=== PATIENT | male | born 1950 | race Caucasian/White ===

== ENCOUNTER 2018-06-03 20:01 | Inpatient (IN) | payer MEDICARE ==
[2018-06-03] MEDS ORDERED: IPRATROPIUM/ALBUTEROL 0.5-2.5 MG/3 ML AMPUL NEB ONE (20:27)
--- NOTE | 2018-06-03 20:29 | ER Document Report ---
ED Medical Screen (RME) - General Chief Complaint: Shortness Of Breath Stated Complaint: SHORTNESS OF BREATH Time Seen by Provider: 06/03/18 20:27 Notes: 67-year-old male with chief complaint of cough and worsening shortness of breath over the past several days. Reports chest pain only with cough. Visiting the area, comes from assisted living, comes by EMS. Not on home oxygen. Past Medical History - Social History Frequency of alcohol use: None Drug Abuse: None Renal/ Medical History: Denies: Hx Peritoneal Dialysis Physical Exam - Vital signs Vitals: Temp Pulse Resp BP Pulse Ox 98.0 F 54 L 18 126/78 H 99 06/03/18 20:16 06/03/18 20:16 06/03/18 20:16 06/03/18 20:16 06/03/18 20:16 - Respiratory Respiratory status: No respiratory distress Breath sounds: Other - A few coarse breath sounds and scattered expiratory wheezes, mild occasional nonproductive cough Course - Re-evaluation Re-evalutation: I have greeted and performed a rapid initial assessment of this patient. A comprehensive ED assessment and evaluation of the patient, analysis of test results and completion of the medical decision making process will be conducted by additional ED providers. - Vital Signs Vital signs: Temp Pulse Resp BP Pulse Ox 98.0 F 54 L 18 126/78 H 99 06/03/18 20:16 06/03/18 20:16 06/03/18 20:16 06/03/18 20:16 06/03/18 20:16
[2018-06-03 21:25] LABS: ABSOLUTE BASOPHILS # (AUTO) 0.1 10^3/uL (0.0-0.2); ABSOLUTE EOSINOPHILS # (AUTO) 0.3 10^3/uL (0.0-0.6); ABSOLUTE LYMPHOCYTES (AUTO) 1.2 10^3/uL (0.5-4.7); ABSOLUTE MONOCYTES (AUTO) 0.6 10^3/uL (0.1-1.4); ABSOLUTE NEUT (AUTO) 3.9 10^3/uL (1.7-8.2); BASOPHILS % (AUTO) 1.1 % (0-2); EOSINOPHILS % (AUTO) 5.5 % (0-6); HEMATOCRIT 38.4 % (37.9-51.0); HEMOGLOBIN 13.2 g/dL (13.5-17.0); LYMPHOCYTES % (AUTO) 19.3 % (13-45); MEAN CORPUSCULAR HEMOGLOBIN 30.2 pg (27.0-33.4); MEAN CORPUSCULAR HGB CONC 34.3 g/dL (32.0-36.0); MEAN CORPUSCULAR VOLUME 88 fl (80-97); MONOCYTES % (AUTO) 9.9 % (3-13); PLATELET COUNT 270 10^3/uL (150-450); RED BLOOD COUNT 4.36 10^6/uL (4.35-5.55); RED CELL DISTRIBUTION WIDTH 13.4 % (11.5-14.0); SEGMENTED NEUTROPHILS % (AUTO) 64.2 % (42-78); TOTAL CELLS COUNTED % (AUTO) 100 %
[2018-06-03 22:02] LABS: ALANINE AMINOTRANSFERASE 64 U/L (21-72); ALBUMIN 3.4 g/dL (3.5-5.0); ALKALINE PHOSPHATASE 112 U/L (38-126); ANION GAP 8 (5-19); ASPARTATE AMINO TRANSFERASE 46 U/L (17-59); BILIRUBIN,DIRECT 0.5 mg/dL (0.0-0.4); BILIRUBIN,TOTAL 0.9 mg/dL (0.2-1.3); BLOOD UREA NITROGEN 9 mg/dL (7-20); CALCIUM 8.8 mg/dL (8.4-10.2); CARBON DIOXIDE 28 mmol/L (22-30); CHLORIDE 85 mmol/L (98-107); GLUCOSE 250 mg/dL (75-110); POTASSIUM 5.1 mmol/L (3.6-5.0); TOTAL PROTEIN 5.8 g/dL (6.3-8.2)
--- NOTE | 2018-06-03 22:03 | RADIOLOGY REPORT (SQ) ---
EXAM DESCRIPTION: XR CHEST 1 VIEW COMPLETED DATE/TME: 06/03/2018 20:27 CLINICAL HISTORY: 67 years, Male, shortness of breath, cough COMPARISON: None. NUMBER OF VIEWS: TECHNIQUE: LIMITATIONS: None. FINDINGS: EXAM DESCRIPTION: CLINICAL HISTORY: shortness of breath, cough COMPARISON: None. FINDINGS: Single view of the chest is submitted. Cardiac silhouette is enlarged. There is bilateral pulmonary vascular engorgement and there is consolidation at each lung base with a moderate left pleural effusion. IMPRESSION: Bilateral consolidations. Cardiomegaly. Left pleural effusion.
[2018-06-03 22:19] LABS: SODIUM 120.6 mmol/L (137-145)
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
[2018-06-04] MEDS ORDERED: FUROSEMIDE INJ/PF 40 MG/4 ML SDV IV ONE (01:27)
[2018-06-04] MEDS ORDERED: DEXTROSE 50%-WATER 25 GM/50 ML DISP.SYRIN IV PRN ×2 (01:30)
[2018-06-04] MEDS ORDERED: ACETAMINOPHEN 325 MG TABLET PO PRN (01:30)
[2018-06-04] MEDS ORDERED: DEXTROSE 40% GEL 15 GM TUBE PO PRN ×2 (01:30)
[2018-06-04] MEDS ORDERED: GLUCAGON,HUMAN RECOMB 1 MG INJ IM PRN (01:30)
[2018-06-04] MEDS ORDERED: MAG HYDROX/AL HYDROX/SIMETH SUSP 30 ML UDCUP PO PRN (01:30)
--- NOTE | 2018-06-04 01:35 | ER Document Report ---
Doctor's Note Notes: I personally and independently obtained patient history and examined the patient and have reviewed the APC's note, reviewed, discussed and agree with their assessment and plan. HISTORY OF PRESENT ILLNESS: Patient is a 67-year-old male that presents to the emergency department for chief complaint of shortness of breath. ROS: Constitutional: Negative for fever. Cardiovascular: Negative for chest pain. Respiratory: Positive for shortness of breath Gastrointestinal: Negative for vomiting or abdominal pain Musculoskeletal: Negative for arm, leg or back pain Skin: Negative for rash. Neurological: Negative for weakness or numbness. Unless otherwise stated in this report the patient's positive and negative responses for review of systems for constitutional, eyes, ENT, cardiovascular, respiratory, gastrointestinal, neurological, genitourinary, musculoskeletal, and integumentary systems and related systems to the presenting problem are either as stated in the HPI or were not pertinent or were negative for the symptoms and/or complaints related to the presenting medical problem. PHYSICAL EXAMINATION: Vital signs reviewed, nursing noted reviewed. GENERAL: Well-appearing, well-nourished and in no acute distress. HEAD: Atraumatic, normocephalic. EYES: Eyes appear normal, conjunctiva are normal. ENT: nares patent, oropharynx clear without exudates. Moist mucous membranes. NECK: Normal range of motion, supple without lymphadenopathy LUNGS: Crackles noted at the lung bases, otherwise clear to auscultation in the upper lung lehman, no respiratory distress HEART: Regular rate and rhythm without murmurs ABDOMEN: Soft, nontender, normoactive bowel sounds. No rebound, guarding, or rigidity. No masses appreciated. EXTREMITIES: Nontender, good range of motion, no pitting or edema. NEUROLOGICAL: No focal neurological deficits. Moves all extremities spontaneously Motor and sensory grossly intact on exam. PSYCH: Normal mood, normal affect. SKIN: Warm, Dry, normal turgor, no rashes or lesions noted on exposed MEDICAL DECISION MAKING: After review and examined the patient, and results, patient will need to be admitted to the hospital, for significant hyponatremia, acute kidney injury, likely type II cardiorenal syndrome secondary to volume overload, and this is most likely hypervolemic hyponatremia, given that the patient did have pulmonary edema, leading to the patient's shortness of breath. Patient was admitted to the hospitalist who accepted him onto their service. Please review detail APC documentation. *Note is created using voice recognition software and may contain spelling, syntax or grammatical errors. CRITICAL CARE TIME: 35 minutes Critical care time 35 minutes exclusive from separate billable procedures for a patient requiring complex medical decision making, and high potential for clinical deterioration. In a patient with significant electrolyte abnormalities , volume overload, and pulmonary edema. time spent obtaining history from patient or surrogate, discussions with consultants, development of treatment plan with patient or surrogate, evaluation of patient's response to treatment, examination of patient, ordering and performing treatments and interventions, ordering and review of laboratory studies, re-evaluation of patient's condition , ordering and review of radiographic studies and review of old charts Microbiology 06/04/18 00:26 Blood Culture - Preliminary Blood NO GROWTH IN 24 HOURS 06/03/18 21:10 Blood Culture - Preliminary Blood NO GROWTH IN 24 HOURS Laboratory 06/03/18 06/03/18 06/03/18 21:10 21:10 21:10 WBC 6.0 RBC 4.36 Hgb 13.2 L Hct 38.4 MCV 88 MCH 30.2 MCHC 34.3 RDW 13.4 Plt Count 270 Seg Neutrophils % 64.2 Lymphocytes % 19.3 Monocytes % 9.9 Eosinophils % 5.5 Basophils % 1.1 Absolute Neutrophils 3.9 Absolute Lymphocytes 1.2 Absolute Monocytes 0.6 Absolute Eosinophils 0.3 Absolute Basophils 0.1 Sodium 120.6 L* Potassium 5.1 H Chloride 85 L Carbon Dioxide 28 Anion Gap 8 BUN 9 Creatinine 0.72 Est GFR ( Amer) > 60 Est GFR (Non-Af Amer) > 60 Glucose 250 H Serum Osmolality Calcium 8.8 Total Bilirubin 0.9 Direct Bilirubin 0.5 H Neonat Total Bilirubin Not Reportable Neonat Direct Bilirubin Not Reportable Neonat Indirect Bili Not Reportable AST 46 ALT 64 Alkaline Phosphatase 112 Creatine Kinase CK-MB (CK-2) Troponin I 0.020 NT-Pro-B Natriuret Pep Total Protein 5.8 L Albumin 3.4 L TSH Free T4 Free T3 pg/mL Urine Osmolality Urine Sodium 06/03/18 06/03/18 06/03/18 21:10 21:10 21:10 WBC RBC Hgb Hct MCV MCH MCHC RDW Plt Count Seg Neutrophils % Lymphocytes % Monocytes % Eosinophils % Basophils % Absolute Neutrophils Absolute Lymphocytes Absolute Monocytes Absolute Eosinophils Absolute Basophils Sodium Potassium Chloride Carbon Dioxide Anion Gap BUN Creatinine Est GFR ( Amer) Est GFR (Non-Af Amer) Glucose Serum Osmolality 261 L Calcium Total Bilirubin Direct Bilirubin Neonat Total Bilirubin Neonat Direct Bilirubin Neonat Indirect Bili AST ALT Alkaline Phosphatase Creatine Kinase CK-MB (CK-2) Troponin I NT-Pro-B Natriuret Pep 5840 H Total Protein Albumin TSH 10.10 H Free T4 Free T3 pg/mL Urine Osmolality Urine Sodium 06/04/18 06/04/18 06/04/18 02:07 03:47 03:47 WBC 6.4 RBC 4.82 Hgb 14.6 Hct 42.8 MCV 89 MCH 30.2 MCHC 34.1 RDW 13.3 Plt Count 253 Seg Neutrophils % 64.5 Lymphocytes % 21.5 Monocytes % 6.9 Eosinophils % 5.7 Basophils % 1.4 Absolute Neutrophils 4.1 Absolute Lymphocytes 1.4 Absolute Monocytes 0.4 Absolute Eosinophils 0.4 Absolute Basophils 0.1 Sodium Potassium Chloride Carbon Dioxide Anion Gap BUN Creatinine Est GFR ( Amer) Est GFR (Non-Af Amer) Glucose Serum Osmolality Calcium Total Bilirubin Direct Bilirubin Neonat Total Bilirubin Neonat Direct Bilirubin Neonat Indirect Bili AST ALT Alkaline Phosphatase Creatine Kinase CK-MB (CK-2) 4.51 Troponin I 0.020 NT-Pro-B Natriuret Pep Total Protein Albumin TSH Free T4 Free T3 pg/mL Urine Osmolality 157 L Urine Sodium < 5 L 06/04/18 06/04/18 06/04/18 03:47 03:47 08:43 WBC RBC Hgb Hct MCV MCH MCHC RDW Plt Count Seg Neutrophils % Lymphocytes % Monocytes % Eosinophils % Basophils % Absolute Neutrophils Absolute Lymphocytes Absolute Monocytes Absolute Eosinophils Absolute Basophils Sodium 125.8 L Potassium 4.2 Chloride 85 L Carbon Dioxide 31 H Anion Gap 10 BUN 9 Creatinine 0.66 Est GFR ( Amer) > 60 Est GFR (Non-Af Amer) > 60 Glucose 315 H Serum Osmolality Calcium 8.7 Total Bilirubin Direct Bilirubin Neonat Total Bilirubin Neonat Direct Bilirubin Neonat Indirect Bili AST ALT Alkaline Phosphatase Creatine Kinase 230 H 161 CK-MB (CK-2) Troponin I NT-Pro-B Natriuret Pep Total Protein Albumin TSH Free T4 1.47 Free T3 pg/mL 1.44 L Urine Osmolality Urine Sodium 06/04/18 06/04/18 06/04/18 08:43 14:36 14:36 WBC RBC Hgb Hct MCV MCH MCHC RDW Plt Count Seg Neutrophils % Lymphocytes % Monocytes % Eosinophils % Basophils % Absolute Neutrophils Absolute Lymphocytes Absolute Monocytes Absolute Eosinophils Absolute Basophils Sodium Potassium Chloride Carbon Dioxide Anion Gap BUN Creatinine Est GFR ( Amer) Est GFR (Non-Af Amer) Glucose Serum Osmolality Calcium Total Bilirubin Direct Bilirubin Neonat Total Bilirubin Neonat Direct Bilirubin Neonat Indirect Bili AST ALT Alkaline Phosphatase Creatine Kinase 150 CK-MB (CK-2) 3.88 3.59 Troponin I 0.020 0.017 NT-Pro-B Natriuret Pep Total Protein Albumin TSH Free T4 Free T3 pg/mL Urine Osmolality Urine Sodium Chest X-Ray 06/03/18 20:27 with a moderate left pleural effusion. IMPRESSION: Bilateral consolidations. Cardiomegaly. Left pleural effusion.
[2018-06-04] MEDS ORDERED: HYDRALAZINE HCL INJ/PF 20 MG/1 ML SDV IV PRN (01:36)
[2018-06-04] MEDS ORDERED: NITROGLYCERIN 5 MG (0.2 MG/HR) PATCH.TD24 TD ONE (01:45)
[2018-06-04 02:53] LABS: OSMOLALITY,URINE 157 mOsm/kg (300-900)
[2018-06-04 03:10] LABS: URINE SODIUM < 5 mmol/L (30-90)
[2018-06-04 04:00] LABS: ABSOLUTE BASOPHILS # (AUTO) 0.1 10^3/uL (0.0-0.2); ABSOLUTE EOSINOPHILS # (AUTO) 0.4 10^3/uL (0.0-0.6); ABSOLUTE LYMPHOCYTES (AUTO) 1.4 10^3/uL (0.5-4.7); ABSOLUTE MONOCYTES (AUTO) 0.4 10^3/uL (0.1-1.4); ABSOLUTE NEUT (AUTO) 4.1 10^3/uL (1.7-8.2); BASOPHILS % (AUTO) 1.4 % (0-2); EOSINOPHILS % (AUTO) 5.7 % (0-6); HEMATOCRIT 42.8 % (37.9-51.0); HEMOGLOBIN 14.6 g/dL (13.5-17.0); LYMPHOCYTES % (AUTO) 21.5 % (13-45); MEAN CORPUSCULAR HEMOGLOBIN 30.2 pg (27.0-33.4); MEAN CORPUSCULAR HGB CONC 34.1 g/dL (32.0-36.0); MEAN CORPUSCULAR VOLUME 89 fl (80-97); MONOCYTES % (AUTO) 6.9 % (3-13); PLATELET COUNT 253 10^3/uL (150-450); RED BLOOD COUNT 4.82 10^6/uL (4.35-5.55); RED CELL DISTRIBUTION WIDTH 13.3 % (11.5-14.0); SEGMENTED NEUTROPHILS % (AUTO) 64.5 % (42-78); TOTAL CELLS COUNTED % (AUTO) 100 %; WHITE BLOOD COUNT 6.4 10^3/uL (4.0-10.5)
[2018-06-04 04:16] LABS: ANION GAP 10 (5-19); BLOOD UREA NITROGEN 9 mg/dL (7-20); CALCIUM 8.7 mg/dL (8.4-10.2); CARBON DIOXIDE 31 mmol/L (22-30); CHLORIDE 85 mmol/L (98-107); CREATINE KINASE 230 U/L (55-170); GLUCOSE 315 mg/dL (75-110); POTASSIUM 4.2 mmol/L (3.6-5.0); SODIUM 125.8 mmol/L (137-145)
[2018-06-04 04:26] LABS: CREATINE KINASE MB 4.51 ng/mL (<4.55); TROPONIN I 0.02 ng/mL
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
[2018-06-04 05:13] LABS: FREE T3 1.44 pg/mL (2.77-5.27); FREE T4 (FREE THYROXINE) 1.47 ng/dL (0.78-2.19)
[2018-06-04] MEDS: HEPARIN SOD (PORCINE) 5,000 UNIT/ML 1 ML SYRINGE SUBCUT SCH ×3 (07:06→22:00)
[2018-06-04 09:45] LABS: CREATINE KINASE MB 3.88 ng/mL (<4.55); TROPONIN I 0.02 ng/mL
[2018-06-04] MEDS ORDERED: FUROSEMIDE INJ/PF 40 MG/4 ML SDV IV SCH (10:00)
[2018-06-04] MEDS: LOSARTAN POTASSIUM 25 MG TABLET PO SCH (13:02)
[2018-06-04] MEDS: DOCUSATE SODIUM 100 MG CAPSULE PO SCH (13:02)
[2018-06-04] MEDS: ASPIRIN 81 MG TABLET, ENT COATED PO SCH (13:03)
[2018-06-04] MEDS: NITROGLYCERIN 5 MG (0.2 MG/HR) PATCH.TD24 TD SCH (13:08)
[2018-06-04 15:18] LABS: CREATINE KINASE MB 3.59 ng/mL (<4.55); TROPONIN I 0.017 ng/mL
--- NOTE | 2018-06-04 15:25 | EKG REPORT ---
SEVERITY:- ABNORMAL ECG - ATRIAL FIBRILLATION, V-RATE 50-57 MULTIPLE VENTRICULAR PREMATURE COMPLEXES ABERRANT COMPLEX, POSSIBLY SUPRAVENTRICULAR ABNRM R PROG, CONSIDER ASMI OR LEAD PLACEMENT NONSPECIFIC T ABNORMALITIES, LATERAL LEADS : Confirmed by: Kandi Harris MD 04-Jun-2018 15:24:53
[2018-06-04] MEDS ORDERED: SENNOSIDES/DOCUSATE 8.6-50 MG 1 EACH TABLET PO PRN (17:56)
[2018-06-04] MEDS ORDERED: (PENDING PHARMACY ID) (Levothyroxine Sodium [Synthroid] 250 MCG) PO SCH (18:00)
--- NOTE | 2018-06-04 18:17 | PDOC PROGRESS REPORT ---
Subjective Progress Note for:: 06/04/18 Subjective:: BROOKE KING is a 67 year old male assisted living resident who presented with 24 hours of exertional dyspnea with orthopnea. In the emergency room he was found to have hyponatremia and pulmonary vascular congestion on imaging. He received IV Lasix was admitted. He has done well since his admission with his initial hyponatremia improving with IV fluid and his mild hyperkalemia has also resolved. His initial symptoms of exertional dyspnea and orthopnea have also subsided and he is feeling very well. Reason For Visit: HYPONATREMIA, HEART FAILURE Physical Exam Vital Signs: Temp Pulse Resp BP Pulse Ox 98.0 F 54 L 19 148/94 H 99 06/03/18 20:16 06/03/18 20:29 06/04/18 17:00 06/04/18 14:00 06/04/18 17:00 General appearance: PRESENT: no acute distress, cooperative Head exam: PRESENT: atraumatic, normocephalic Eye exam: PRESENT: conjunctiva pink. ABSENT: conjunctival injection Ear exam: PRESENT: normal external ear exam. ABSENT: bleeding, drainage Mouth exam: PRESENT: neck supple, tongue midline Neck exam: ABSENT: thyromegaly, tracheal deviation Respiratory exam: PRESENT: clear to auscultation isabel, symmetrical, unlabored Cardiovascular exam: PRESENT: RRR, tachycardia. ABSENT: clicks, diastolic murmur, gallop, rubs, systolic murmur Pulses: PRESENT: normal radial pulses, normal dorsalis pedis pul Vascular exam: PRESENT: normal capillary refill. ABSENT: pallor GI/Abdominal exam: PRESENT: normal bowel sounds, soft Rectal exam: PRESENT: deferred Extremities exam: ABSENT: joint swelling, pedal edema Musculoskeletal exam: PRESENT: normal inspection, tenderness. ABSENT: deformity , dislocation Neurological exam: PRESENT: alert, awake, oriented to person, oriented to place , oriented to time, oriented to situation, CN II-XII grossly intact. ABSENT: motor sensory deficit Psychiatric exam: PRESENT: appropriate affect, normal mood Skin exam: ABSENT: jaundice, rash, urticaria Results Laboratory Results: 06/04/18 03:47 06/04/18 03:47 06/04/18 06/04/18 06/04/18 02:07 03:47 03:47 WBC 6.4 RBC 4.82 Hgb 14.6 Hct 42.8 MCV 89 MCH 30.2 MCHC 34.1 RDW 13.3 Plt Count 253 Seg Neutrophils % 64.5 Lymphocytes % 21.5 Monocytes % 6.9 Eosinophils % 5.7 Basophils % 1.4 Absolute Neutrophils 4.1 Absolute Lymphocytes 1.4 Absolute Monocytes 0.4 Absolute Eosinophils 0.4 Absolute Basophils 0.1 Sodium 125.8 L Potassium 4.2 Chloride 85 L Carbon Dioxide 31 H Anion Gap 10 BUN 9 Creatinine 0.66 Est GFR ( Amer) > 60 Est GFR (Non-Af Amer) > 60 Glucose 315 H Calcium 8.7 Free T4 Free T3 pg/mL Urine Osmolality 157 L 06/04/18 03:47 WBC RBC Hgb Hct MCV MCH MCHC RDW Plt Count Seg Neutrophils % Lymphocytes % Monocytes % Eosinophils % Basophils % Absolute Neutrophils Absolute Lymphocytes Absolute Monocytes Absolute Eosinophils Absolute Basophils Sodium Potassium Chloride Carbon Dioxide Anion Gap BUN Creatinine Est GFR ( Amer) Est GFR (Non-Af Amer) Glucose Calcium Free T4 1.47 Free T3 pg/mL 1.44 L Urine Osmolality 06/04/18 06/04/18 06/04/18 03:47 03:47 08:43 Creatine Kinase 230 H 161 CK-MB (CK-2) 4.51 Troponin I 0.020 06/04/18 06/04/18 06/04/18 08:43 14:36 14:36 Creatine Kinase 150 CK-MB (CK-2) 3.88 3.59 Troponin I 0.020 0.017 Impressions: Chest X-Ray 06/03/18 20:27 with a moderate left pleural effusion. IMPRESSION: Bilateral consolidations. Cardiomegaly. Left pleural effusion. Assessment & Plan - Diagnosis (1) Hyperkalemia Is this a current diagnosis for this admission?: Yes Plan: Resolved at this time having been given IV fluids, will observe closely over remainder of his hospital course. (2) Congestive heart failure Is this a current diagnosis for this admission?: Yes Plan: Clinically significant improvement is noted with medication changes utilizing losartan, Toprol-XL, Demadex and spironolactone. Observe over the remainder of the hospital course for continued improvements and toleration of regimen. (3) Diabetes Qualifiers: Diabetes mellitus type: type 2 Diabetes mellitus terminal operations supervisor insulin use: without usp use Diabetes mellitus complication status: without complication Qualified Code(s): E11.9 - Type 2 diabetes mellitus without complications Is this a current diagnosis for this admission?: Yes Plan: Reinstate patient's current diet and treatment plan and check hemoglobin A1c. (4) Hyponatremia Is this a current diagnosis for this admission?: Yes Plan: Gradually improving with therapy utilizing IV fluids. (5) Hypothyroidism Qualifiers: Hypothyroidism type: unspecified Qualified Code(s): E03.9 - Hypothyroidism , unspecified Is this a current diagnosis for this admission?: Yes Plan: Patient's TSH is elevated although the T4 is normal to T3 is somewhat low. This patient probably considered euthyroid sick and we will increase the patient 's thyroid medication slightly to help to improve his overall well-being including possibly resolving some of his congestive heart failure problems. - Time Time Spent with patient: 25-34 minutes Medications reviewed and adjusted accordingly: Yes
[2018-06-04] MEDS: MAGNESIUM OXIDE 400 MG TABLET PO SCH (20:22)
[2018-06-04] MEDS: LEVOTHYROXINE SODIUM 0.15 MG TABLET PO SCH (20:22)
[2018-06-04] MEDS: METFORMIN HCL 500 MG TABLET PO SCH (20:22)
[2018-06-04] MEDS: FERROUS SULFATE 325 MG TABLET PO SCH (20:23)
[2018-06-04] MEDS: CLOPIDOGREL BISULFATE 75 MG TABLET PO SCH (20:23)
[2018-06-04] MEDS: INSULIN LISPRO 100 UNIT/ML 3 ML VIAL SUBCUT PRN (21:59)
[2018-06-04] MEDS ORDERED: ATORVASTATIN CALCIUM 40 MG TABLET PO SCH (22:00)
[2018-06-04] MEDS: ATORVASTATIN CALCIUM 20 MG TABLET PO SCH (22:00)
[2018-06-04] MEDS ORDERED: INSULIN LISPRO 100 UNIT/ML 3 ML VIAL SUBCUT ONE (22:45)
[2018-06-05 05:56] LABS: ABSOLUTE BASOPHILS # (AUTO) 0.1 10^3/uL (0.0-0.2); ABSOLUTE EOSINOPHILS # (AUTO) 0.3 10^3/uL (0.0-0.6); ABSOLUTE MONOCYTES (AUTO) 0.6 10^3/uL (0.1-1.4); ABSOLUTE NEUT (AUTO) 3.4 10^3/uL (1.7-8.2); BASOPHILS % (AUTO) 1.3 % (0-2); EOSINOPHILS % (AUTO) 6.1 % (0-6); HEMATOCRIT 36.9 % (37.9-51.0); LYMPHOCYTES % (AUTO) 17.8 % (13-45); MEAN CORPUSCULAR HEMOGLOBIN 30.5 pg (27.0-33.4); MEAN CORPUSCULAR HGB CONC 35.2 g/dL (32.0-36.0); MEAN CORPUSCULAR VOLUME 87 fl (80-97); MONOCYTES % (AUTO) 11.9 % (3-13); PLATELET COUNT 237 10^3/uL (150-450); RED BLOOD COUNT 4.26 10^6/uL (4.35-5.55); RED CELL DISTRIBUTION WIDTH 13.5 % (11.5-14.0); SEGMENTED NEUTROPHILS % (AUTO) 62.9 % (42-78); TOTAL CELLS COUNTED % (AUTO) 100 %; WHITE BLOOD COUNT 5.3 10^3/uL (4.0-10.5)
[2018-06-05] MEDS: HEPARIN SOD (PORCINE) 5,000 UNIT/ML 1 ML SYRINGE SUBCUT SCH ×3 (06:01→21:51)
[2018-06-05 06:19] LABS: ANION GAP 8 (5-19); BLOOD UREA NITROGEN 11 mg/dL (7-20); CALCIUM 8.5 mg/dL (8.4-10.2); CARBON DIOXIDE 33 mmol/L (22-30); CHLORIDE 88 mmol/L (98-107); GLUCOSE 172 mg/dL (75-110); POTASSIUM 3.9 mmol/L (3.6-5.0); SODIUM 128.7 mmol/L (137-145)
[2018-06-05] MEDS ORDERED: INSULIN GLARGINE,HUM.REC.ANLOG 1,000 UNIT/10 ML UNIT SUBCUT SCH (07:30)
[2018-06-05] MEDS: INSULIN LISPRO 100 UNIT/ML 3 ML VIAL SUBCUT PRN ×4 (07:57→21:51)
[2018-06-05] MEDS: NITROGLYCERIN 5 MG (0.2 MG/HR) PATCH.TD24 TD SCH (10:58)
[2018-06-05] MEDS: SPIRONOLACTONE 25 MG TABLET PO SCH (10:59)
[2018-06-05] MEDS: LEVOTHYROXINE SODIUM 0.15 MG TABLET PO SCH (11:01)
[2018-06-05] MEDS: FERROUS SULFATE 325 MG TABLET PO SCH (11:01)
[2018-06-05] MEDS: MAGNESIUM OXIDE 400 MG TABLET PO SCH ×2 (11:01→17:40)
[2018-06-05] MEDS: ASPIRIN 81 MG TABLET, ENT COATED PO SCH (11:02)
[2018-06-05] MEDS: LOSARTAN POTASSIUM 25 MG TABLET PO SCH (11:02)
[2018-06-05] MEDS: DOCUSATE SODIUM 100 MG CAPSULE PO SCH (11:02)
[2018-06-05] MEDS: METFORMIN HCL 500 MG TABLET PO SCH ×2 (11:02→17:41)
[2018-06-05] MEDS: CLOPIDOGREL BISULFATE 75 MG TABLET PO SCH (11:02)
[2018-06-05] MEDS: METOPROLOL SUCCINATE 50 MG TAB.SR.24H PO SCH (11:02)
[2018-06-05] MEDS: MULTIVITAMIN TABLET PO SCH (11:02)
[2018-06-05] MEDS: TORSEMIDE 20 MG TABLET PO SCH (11:05)
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
[2018-06-05] MEDS ORDERED: POLYVINYL ALCOHOL 1.4% OPH SOLN 15 ML OU SCH (18:00)
[2018-06-05] MEDS ORDERED: LEVOTHYROXINE SODIUM 0.1 MG TABLET PO SCH (18:30)
[2018-06-05] MEDS: CARBOXYMETHYLCELLULOSE SOD 0.5% 0.4 ML DROPERETTE OU SCH (18:37)
[2018-06-05] MEDS: ATORVASTATIN CALCIUM 20 MG TABLET PO SCH (21:51)
[2018-06-06] MEDS: HEPARIN SOD (PORCINE) 5,000 UNIT/ML 1 ML SYRINGE SUBCUT SCH ×2 (05:30→14:17)
[2018-06-06 06:27] LABS: HEMATOCRIT 36.9 % (37.9-51.0); HEMOGLOBIN 12.9 g/dL (13.5-17.0); MEAN CORPUSCULAR HEMOGLOBIN 30.3 pg (27.0-33.4); MEAN CORPUSCULAR HGB CONC 34.9 g/dL (32.0-36.0); MEAN CORPUSCULAR VOLUME 87 fl (80-97); PLATELET COUNT 244 10^3/uL (150-450); RED BLOOD COUNT 4.24 10^6/uL (4.35-5.55); RED CELL DISTRIBUTION WIDTH 13.6 % (11.5-14.0); WHITE BLOOD COUNT 5.4 10^3/uL (4.0-10.5)
[2018-06-06] MEDS ORDERED: INSULIN GLARGINE,HUM.REC.ANLOG 1,000 UNIT/10 ML UNIT SUBCUT SCH (07:30)
[2018-06-06] MEDS ORDERED: LEVOTHYROXINE SODIUM 0.1 MG TABLET PO SCH (10:00)
[2018-06-06] MEDS: NITROGLYCERIN 5 MG (0.2 MG/HR) PATCH.TD24 TD SCH (11:12)
[2018-06-06] MEDS: MULTIVITAMIN TABLET PO SCH (11:13)
[2018-06-06] MEDS: LOSARTAN POTASSIUM 25 MG TABLET PO SCH (11:13)
[2018-06-06] MEDS: LEVOTHYROXINE SODIUM 0.15 MG TABLET PO SCH (11:13)
[2018-06-06] MEDS: ASPIRIN 81 MG TABLET, ENT COATED PO SCH (11:13)
[2018-06-06] MEDS: CLOPIDOGREL BISULFATE 75 MG TABLET PO SCH (11:13)
[2018-06-06] MEDS: DOCUSATE SODIUM 100 MG CAPSULE PO SCH (11:13)
[2018-06-06] MEDS: MAGNESIUM OXIDE 400 MG TABLET PO SCH (11:13)
[2018-06-06] MEDS: SPIRONOLACTONE 25 MG TABLET PO SCH (11:14)
[2018-06-06] MEDS: METOPROLOL SUCCINATE 50 MG TAB.SR.24H PO SCH (11:14)
[2018-06-06] MEDS: FERROUS SULFATE 325 MG TABLET PO SCH (11:14)
[2018-06-06] MEDS: TORSEMIDE 20 MG TABLET PO SCH (11:15)
[2018-06-06] MEDS: CARBOXYMETHYLCELLULOSE SOD 0.5% 0.4 ML DROPERETTE OU SCH ×2 (11:17→14:17)
[2018-06-06] MEDS: METFORMIN HCL 500 MG TABLET PO SCH (11:17)
[2018-06-06] MEDS: INSULIN LISPRO 100 UNIT/ML 3 ML VIAL SUBCUT PRN (11:43)
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
[2018-06-06 13:35] VITALS: BP 137/70
== END 2018-06-06 17:18 | DRG 640 ==
LOC: ER 20:01 → EH 06-04 01:41 → 3W 06-04 18:33
PROVIDERS: ADMIT Internal Medicine; ATTEND Internal Medicine
DX: E87.1 Hypo-osmolality and hyponatremia (principal); I50.33 Acute on chronic diastolic (congestive) heart failure; N17.9 Acute kidney failure, unspecified; I11.0 Hypertensive heart disease with heart failure; E11.8 Type 2 diabetes mellitus with unspecified complications; E87.5 Hyperkalemia; E03.9 Hypothyroidism, unspecified; K21.9 Gastro-esophageal reflux disease without esophagitis; Z79.01 Long term (current) use of anticoagulants; Z79.84 Long term (current) use of oral hypoglycemic drugs; Z79.82 Long term (current) use of aspirin; Z79.4 Long term (current) use of insulin; Z79.899 Other long term (current) drug therapy
CPT/HCPCS: 36415; 71045; 80048; 80053; 82550; 82553; 82962; 83036; 83735; 83880; 83930; 83935; 84300; 84439; 84443; 84481; 84484; 85025; 85027; 87040; 93005; 93010; 93306; 99285; J1644; J1815; J1940; J3490

== ENCOUNTER 2018-06-08 05:33 | Emergency (ER) | payer MEDICARE ==
--- NOTE | 2018-06-08 05:55 | ER Document Report ---
ED Medical Screen (RME) - General Stated Complaint: ALTERED MENTAL STATUS Time Seen by Provider: 06/08/18 05:47 Mode of Arrival: Ambulatory Information source: Emergency Med Personnel Cannot obtain history due to: Altered mental status Notes: 67-year-old male with congestive heart failure, hypertension, type 1 diabetes presents via EMS from a nursing facility with complaints of unresponsive hypoglycemia. EMS reports a blood sugar of 30. Patient is AO 1. TRAVEL OUTSIDE OF THE [place] IN LAST 30 DAYS: No - HPI Onset: Just prior to arrival Onset/Duration: Sudden - Related Data Allergies/Adverse Reactions: amlodipine Allergy (Verified 06/03/18 20:28) morphine Allergy (Verified 06/03/18 20:28) nicardipine Allergy (Verified 06/03/18 20:28) Past Medical History - Past Medical History Cardiac Medical History: Reports: Hx Congestive Heart Failure, Hx Heart Attack - x2, Hx Hypercholesterolemia, Hx Hypertension Endocrine Medical History: Reports: Hx Diabetes Mellitus Type 1 Renal/ Medical History: Denies: Hx Peritoneal Dialysis GI Medical History: Reports: Hx Gastroesophageal Reflux Disease Psychiatric Medical History: Denies: Hx Dementia, Hx Depression Past Surgical History: Reports: Hx Cardiac Surgery - coronary angioplasty implant and graft, Hx Coronary Artery Bypass Graft
[2018-06-08 06:24] LABS: ABSOLUTE BASOPHILS # (AUTO) 0.1 10^3/uL (0.0-0.2); ABSOLUTE EOSINOPHILS # (AUTO) 0.3 10^3/uL (0.0-0.6); ABSOLUTE MONOCYTES (AUTO) 0.4 10^3/uL (0.1-1.4); ABSOLUTE NEUT (AUTO) 3.2 10^3/uL (1.7-8.2); BASOPHILS % (AUTO) 1.3 % (0-2); EOSINOPHILS % (AUTO) 5.5 % (0-6); HEMATOCRIT 39.6 % (37.9-51.0); HEMOGLOBIN 13.4 g/dL (13.5-17.0); LYMPHOCYTES % (AUTO) 20.1 % (13-45); MEAN CORPUSCULAR HEMOGLOBIN 30.2 pg (27.0-33.4); MEAN CORPUSCULAR HGB CONC 33.8 g/dL (32.0-36.0); MEAN CORPUSCULAR VOLUME 90 fl (80-97); MONOCYTES % (AUTO) 7.6 % (3-13); PLATELET COUNT 247 10^3/uL (150-450); RED BLOOD COUNT 4.43 10^6/uL (4.35-5.55); RED CELL DISTRIBUTION WIDTH 13.2 % (11.5-14.0); SEGMENTED NEUTROPHILS % (AUTO) 65.5 % (42-78); TOTAL CELLS COUNTED % (AUTO) 100 %
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
[2018-06-08 06:35] LABS: INTERNATIONAL RATION (INR) 1.03; PROTHROMBIN TIME 14.1 SEC (11.4-15.4)
[2018-06-08 06:38] LABS: VENOUS BLOOD BASE EXCESS 3.9 mmol/L; VENOUS BLOOD HCO3 31.9 mmol/L (20-32); VENOUS BLOOD PCO2 64.1 mmHg (35-63); VENOUS BLOOD PH 7.32 (7.30-7.42)
[2018-06-08 06:44] LABS: ALANINE AMINOTRANSFERASE 36 U/L (21-72); ALBUMIN 3.4 g/dL (3.5-5.0); ALKALINE PHOSPHATASE 85 U/L (38-126); ANION GAP 6 (5-19); ASPARTATE AMINO TRANSFERASE 42 U/L (17-59); BILIRUBIN,DIRECT 0.5 mg/dL (0.0-0.4); BLOOD UREA NITROGEN 10 mg/dL (7-20); CALCIUM 8.4 mg/dL (8.4-10.2); CARBON DIOXIDE 33 mmol/L (22-30); CHLORIDE 90 mmol/L (98-107); GLUCOSE 130 mg/dL (75-110); POTASSIUM 3.7 mmol/L (3.6-5.0); SODIUM 128.8 mmol/L (137-145); TOTAL PROTEIN 6.1 g/dL (6.3-8.2)
[2018-06-08 06:56] LABS: TROPONIN I 0.018 ng/mL
--- NOTE | 2018-06-08 07:18 | RADIOLOGY REPORT (SQ) ---
EXAM DESCRIPTION: X-ray single view chest CLINICAL HISTORY: 67 years Male, septic COMPARISON: Prior chest x-ray performed on 06/03/2018. TECHNIQUE: Single portable view of the chest performed on 06/08/2018 at 6:49 AM FINDINGS: The lungs are well expanded. There is increased pulmonary vascularity with volume loss in the left lung base and left peripheral midlung which may be due to a combination of atelectasis and pleural fluid. Findings are similar when compared to the prior study. There is no evidence of a pneumothorax. The cardiac silhouette is stable and appears mildly enlarged. There are remote postsurgical changes of the mediastinum. The mediastinal contours are normal. No acute osseous abnormality is identified. No focal soft tissue abnormalities are seen. IMPRESSION: 1. Increasing vascular congestion when compared to the prior study. 2. Persistent volume loss in the left lung base which may be due to a combination of pleural fluid and atelectasis. Underlying inflammatory changes are not excluded.
[2018-06-08 07:23] LABS: APPEARANCE,URINE CLEAR; BILIRUBIN,URINE NEGATIVE (NEGATIVE); COLOR,URINE YELLOW; GLUCOSE, URINE 150 mg/dL (NEGATIVE); KETONES,URINE NEGATIVE (NEGATIVE); LEUKOCYTE ESTERASE,URINE NEGATIVE (NEGATIVE); NITRITE,URINE NEGATIVE (NEGATIVE); PROTEIN,URINE NEGATIVE (NEGATIVE); URINE SPECIFIC GRAVITY 1.009
[2018-06-08] MEDS ORDERED: FUROSEMIDE INJ/PF 40 MG/4 ML SDV IV ONE (08:27)
--- NOTE | 2018-06-08 12:39 | EKG REPORT ---
SEVERITY:- ABNORMAL ECG - ATRIAL FIBRILLATION MULTIPLE VENTRICULAR PREMATURE COMPLEXES LEFT BUNDLE BRANCH BLOCK : Confirmed by: Kandi Harris MD 08-Jun-2018 12:38:26
[2018-06-08 17:22] VITALS: BP 109/64
== END 2018-06-08 17:15 | disposition home health service (06) ==
LOC: ER 05:33
DX: E10.649 Type 1 diabetes mellitus with hypoglycemia without coma (principal); T68.XXXA Hypothermia, initial encounter; S20.212A Contusion of left front wall of thorax, initial encounter; X58.XXXA Exposure to other specified factors, initial encounter; R09.89 Other specified symptoms and signs involving the circulatory and respiratory systems; E87.1 Hypo-osmolality and hyponatremia; L89.152 Pressure ulcer of sacral region, stage 2; I48.91 Unspecified atrial fibrillation; I44.7 Left bundle-branch block, unspecified; I49.3 Ventricular premature depolarization; I10 Essential (primary) hypertension; I25.2 Old myocardial infarction; Z95.5 Presence of coronary angioplasty implant and graft; Z95.1 Presence of aortocoronary bypass graft; Z88.8 Allergy status to other drugs, medicaments and biological substances; Z88.5 Allergy status to narcotic agent
CPT/HCPCS: 93005; 99285; 96374; 36415; 87040; 87086; 82962; 85025; 85610; 87077; 80053; 81001; 84484; 87186; 82803; 83605; 83880; 71045; 93010; J1940